=== PATIENT | male | born 1985 | race Caucasian/White ===

== ENCOUNTER 2021-01-10 02:43 | Observation (INO) | payer OTHER ==
[2021-01-10] MEDS ORDERED: NITROGLYCERIN SL TABS 0.4 MG TAB SUBLINGUAL PRN (03:04)
[2021-01-10] MEDS ORDERED: HEPARIN SOD,PORK IN 0.45% NACL 25,000 UNIT in 0.45% NACL 1 250ML.BAG IV SCH (03:15)
--- NOTE | 2021-01-10 03:21 | ED ---
Arrhythmia/Palpitations HPI - General Chief Complaint: Arrhythmia/Palpitations Stated Complaint: Palpitations Time Seen by Provider: 01/10/21 03:01 Source: EMS Mode of arrival: EMS - History of Present Illness Initial Comments: This patient presents is transferred from [facility]. The patient on there tonight after he had an episode when she passed out. Patient admitted in stable. He stood up and then passed out. He was also lightheaded and short of breath. This was approximately 8 PM. Review of systems, patient reports that he has not been feeling well since approximately 4:30 in the afternoon. He was having some epigastric discomfort. He gone home approximately 3 or 4 episodes of vomiting. He was feeling a bit better and decided to eat something in the evening and that's when he had the episode. Patient reports drinking daily approximately 8-10 beers. Reviewed the studies from the other facility reveal normal CBC and chemistries, alcohol 173. Chest x-ray and CT brain negative. MD Complaint: "heart racing" -: hour(s) Context: occurred during rest Associated Symptoms: chest pain, shortness of breath, syncope Treatments Prior to Arrival: calcium channel rob - Related Data Allergies Allergy/AdvReac Type Severity Reaction Status Date / Time Influenza Virus Vaccines AdvReac Nausea & Verified 01/10/21 03:06 Vomiting Review of Systems ROS Statement: Those systems with pertinent positive or pertinent negative responses have been documented in the HPI. ROS Other: All systems not noted in ROS Statement are negative. Constitutional: Denies: fever, chills Respiratory: Denies: cough, dyspnea Cardiovascular: Reports: as per HPI, chest pain, palpitations, syncope. Denies: orthopnea, edema Gastrointestinal: Denies: abdominal pain, nausea, vomiting Genitourinary: Denies: dysuria Musculoskeletal: Denies: back pain Skin: Denies: rash, lesions Neurological: Denies: headache, weakness, numbness Past Medical History Past Medical History: No Reported History History of Any Multi-Drug Resistant Organisms: None Reported Past Surgical History: No Surgical Hx Reported Past Psychological History: No Psychological Hx Reported Smoking Status: Never smoker Past Alcohol Use History: Daily Past Drug Use History: None Reported General Exam General appearance: alert, in no apparent distress Head exam: Present: atraumatic, normocephalic Eye exam: Present: normal appearance. Absent: scleral icterus, conjunctival injection ENT exam: Present: normal oropharynx Neck exam: Present: normal inspection Respiratory exam: Present: normal lung sounds bilaterally. Absent: respiratory distress, wheezes, rales, rhonchi, stridor Cardiovascular Exam: Present: irregular rhythm, normal heart sounds. Absent: systolic murmur, diastolic murmur, rubs, gallop GI/Abdominal exam: Present: soft. Absent: distended, tenderness, guarding, rebound, rigid, mass Extremities exam: Present: normal inspection, normal capillary refill. Absent: pedal edema, calf tenderness Back exam: Present: normal inspection. Absent: CVA tenderness (R), CVA tenderness (L) Neurological exam: Present: alert Skin exam: Present: warm, dry, intact, normal color. Absent: rash Course Vital Signs 01/10/21 03:02 Temperature 98.6 F Pulse Rate 115 H Respiratory 19 Rate Blood Pressure 117/78 O2 Sat by Pulse 98 Oximetry EKG Findings - EKG Results: EKG: interpreted by ERMD, normal axis, normal QRS EKG shows: atrial fibrillation (Rate 90 6 PM) - Blocks, [place], Hypertrophy, ST Abn: Repolarization changes or abnormalities: nonspecific abnormality, ST segment, and/or T wave Disposition Clinical Impression: Atrial fibrillation with rapid ventricular response Disposition: ADMITTED IP TO THIS HOSP Condition: Fair Is patient prescribed a controlled substance at d/c from ED?: No Referrals: None,Stated [Primary Care Provider] - 1-2 days
[2021-01-10] MEDS: DILTIAZEM 125 MG in SODIUM CHLORIDE 0.9% 100 ML IV SCH ×3 (03:37→23:04)
[2021-01-10] MEDS: SODIUM CHLORIDE 0.9% 1,000 ML IV SCH ×2 (03:37→23:03)
[2021-01-10] MEDS ORDERED: METOPROLOL TARTRATE 25 MG TAB PO SCH (10:15)
[2021-01-10] MEDS ORDERED: SODIUM CHLORIDE 0.9% 1,000 ML IV ONE (10:20)
--- NOTE | 2021-01-10 10:21 | P.HPIM ---
History of Present Illness This is a pleasant 35 years old male with no significant past medical history. Patient does not follow up with PCP. He works in a factory making wires for cars Patient was transferred from [facility]. Patient states that yesterday it was hot environment for him in his factory, he drank like half-gallon of water, he was feeling dizzy and he vomited twice with no blood. At home he passed out and he felt very weak. He remained on the floor for 2 seconds and walk up immediately, no confusion, no seizure-like activities. He had also some mild central chest pain 2 hours before he passes out. He went to [facility] with dyspnea and chest pain, and with the treatment he felt better and chest pain resolved, dyspnea almost improved. He denies headache or weakness or numbness. No more vomiting, no abdominal pain or diarrhea. No urinary complaints. He denies smoking however he drinks about 9 beers each night, no illicit drugs. He denies depression or suicidal thinking. Reviewing the records from [facility] he got aspirin, CT of the neck shows no significant stenosis. CT of the head was also negative. Chest x-ray: No acute process. EKG at [place] shown A. fib with heart rate about 176. WBC is normal at 6.3K, hemoglobin 14.4. Platelet count 157K. sodium 140, potassium 3.5. Creatinine 1.1. Glucose 96. Lipase 21. AST 38, ALT 44, total bilirubin 0.4 Alcohol level was elevated 173. Troponin less than 0.01. Magnesium 2.1, urine drug screen is negative. INR is 1.0. Free T4 is normal at 1.0 and normal TSH at 1.6. Patient presents because of palpitation. On admission he was tachycardic 115-145, Troponins 2 are negative. EKG showed atrial fibrillation with a rate of 96 breath per minute. Review of Systems CONSTITUTIONAL: No fever, no malaise, no fatigue. HEENT: No recent visual problems or hearing problems. Denied any sore throat. CARDIOVASCULAR: No orthopnea, PND, no palpitations, no syncope. PULMONARY: No shortness of breath, no cough, no hemoptysis. GASTROINTESTINAL: No diarrhea, no nausea, no vomiting, no abdominal pain. Normoactive bowel sounds. NEUROLOGICAL: No headaches, no weakness, no numbness. HEMATOLOGICAL: Denies any bleeding or petechiae. GENITOURINARY: Denies any burning micturition, frequency, or urgency. MUSCULOSKELETAL/RHEUMATOLOGICAL: Denies any joint pain, swelling, or any muscle pain. ENDOCRINE: Denies any polyuria or polydipsia. Past Medical History Past Medical History: No Reported History History of Any Multi-Drug Resistant Organisms: None Reported Past Surgical History: No Surgical Hx Reported Past Psychological History: No Psychological Hx Reported Smoking Status: Never smoker Past Alcohol Use History: Daily Past Drug Use History: None Reported Medications and Allergies Home Medications Medication Instructions Recorded Confirmed Type No Known Home Medications 01/10/21 01/10/21 History Allergies Allergy/AdvReac Type Severity Reaction Status Date / Time Influenza Virus Vaccines AdvReac Nausea & Verified 01/10/21 07:09 Vomiting Physical Exam Vitals: Vital Signs Temp Pulse Resp BP Pulse Ox 01/10/21 09:09 145 H 16 107/91 99 01/10/21 07:21 98 16 123/89 99 01/10/21 06:00 98.9 F 99 18 122/86 98 01/10/21 03:02 98.6 F 115 H 19 117/78 98 Intake and Output 01/09/21 01/10/21 01/10/21 22:59 06:59 14:59 Intake Total 10.502 28 Balance 10.502 28 Intake: Intake, IV Titration 10. 28 Amount Diltiazem 125 mg In 28 Sodium Chloride 0.9% 100 ml @ 5 MG/HR 5 mls/hr IV .Q24H ELE Rx#:[id number] Heparin Sod,Pork in 0.45% 10.502 NaCl 25,000 unit In 0.45 % NaCl 1 250ml.bag @ 10.5 UNITS/KG/HR 10.002 mls/ hr IV .Q24H ELE Rx#: [id number] Other: Weight 95.254 kg GENERAL: The patient is alert and oriented x3, not in any acute distress. Well developed, well nourished. HEENT: Pupils are round and equally reacting to light. EOMI. No scleral icterus. No conjunctival pallor. Normocephalic, atraumatic. No pharyngeal erythema. No thyromegaly. CARDIOVASCULAR: S1 and S2 present. No murmurs, rubs, or gallops. PULMONARY: Chest is clear to auscultation, no wheezing or crackles. ABDOMEN: Soft, nontender, nondistended, normoactive bowel sounds. No palpable organomegaly. MUSCULOSKELETAL: No joint swelling or deformity. EXTREMITIES: No cyanosis, clubbing, or pedal edema. NEUROLOGICAL: Gross neurological examination did not reveal any focal deficits. SKIN: No rashes. No petechiae Results Labs: Abnormal Lab Results - Last 24 Hours (Table) 01/10/21 Range/Units 03:15 APTT 111.2 H* (22.0-30.0) sec Assessment and Plan Assessment: New onset A. fib and RVR Dehydration, secondary to hot weather and alcoholism Alcohol abuse Alcohol gastritis Plan: This is a pleasant 35 years old male with new onset A. fib and RVR Continue with Cardizem drip and switched to oral beta rob/calcium channel rob Robe with heparin drip and switched to liquids. Cardiology consult Give 1 L of normal saline and continue with IV hydration Labs and medication were reviewed.. Continue same treatment. Continue with symptomatic treatment. Resume home medication. Monitor lytes and vitals. DVT and GI prophylaxis. Further recommendations depends on the clinical course of the patient DVT prophylaxis: heparin GI Prophylaxis: Ppi prognosis is guarded
--- NOTE | 2021-01-10 11:08 | ECHOF ---
Referral Reason:afib MEASUREMENTS -------- HEIGHT: 172.7 cm WEIGHT: 95.3 kg BP: 123/59 RVIDd: 2.7 cm (< 3.3) IVSd: 1.2 cm (0.6 - 1.1) LVIDd: 4.6 cm (3.9 - 5.3) LVPWd: 1.4 cm (0.6 - 1.1) IVSs: 1.5 cm LVIDs: 2.8 cm LVPWs: 1.7 cm LA Diam: 3.6 cm (2.7 - 3.8) LAESV Index (A-L): 20.95 ml/m Ao Diam: 3.3 cm (2.0 - 3.7) AV Cusp: 2.2 cm (1.5 - 2.6) LA Diam: 3.7 cm (2.7 - 3.8) MV EXCURSION: 20.477 mm (> 18.000) MV EF SLOPE: 131 mm/s (70 - 150) EPSS: 0.2 cm RAP: 5.00 mmHg RVSP: 17.13 mmHg FINDINGS -------- Atrial fibrillation. This was a technically good study. LV size, wall thickness and systolic function are normal, with an EF greater than 55%. The left aleida tricular size is normal. The right ventricle is normal in size. Normal LA size by volume 22+/-6 ml/m2. The right atrial size is normal. There is mild aortic valve sclerosis. There is no evidence of aortic regurgitation. Mild mitral regurgitation is present. Mild tricuspid regurgitation present. Right ventricular systolic pressure is normal at < 35 mmHg. Trace/mild (physiologic) pulmonic regurgitation. There is no pericardial effusion. CONCLUSIONS -------- 1. LV size, wall thickness and systolic function are normal, with an EF greater than 55%. 2. The left ventricular size is normal. 3. The right ventricle is normal in size. 4. Normal LA size by volume 22+/-6 ml/m2. 5. The right atrial size is normal. 6. There is mild aortic valve sclerosis. 7. Mild mitral regurgitation is present. 8. Mild tricuspid regurgitation present. 9. Trace/mild (physiologic) pulmonic regurgitation. 10. There is no pericardial effusion. APRON MAN: Krysta Holcomb RDCS
[2021-01-10 12:39] LABS: Magnesium 1.9 mg/dL (1.6-2.3)
--- NOTE | 2021-01-10 13:27 | P.CRDCN ---
History of Present Illness History of present illness: HISTORY OF PRESENTING ILLNESS This is a pleasant 35-year-old male past medical history significant for paroxysmal atrial fibrillation and daily alcohol intake. He states approximately 5 years ago he was diagnosed with atrial fibrillation and did see a junior sales assistant in [place] one time and has not followed up since. 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 He states he felt extremely fatigued throughout the day. He did vomit on multiple occasions throughout the day. He went home in the evening and drank approximately 7 beers. He then stood up to go and eat dinner and started feeling acutely lightheaded with significant palpitations and pressure across distress. He did fall to his knees and briefly blacked out he thinks for a couple seconds. His father took him to the hospital and Dr. Hicks. Upon arrival an EKG was obtained revealing atrial f ibrillation with rapid ventricular response. He was transferred here for further cardiac evaluation. He is seen and examined sitting up on the stretcher in the emergency department. He continues to be in atrial fibrillation with rapid ventricular rates between 140 and 170 bpm. Currently on Cardizem infusion. He continues to feel palpitations however he has no further chest discomfort. REVIEW OF SYSTEMS At the time of my exam: CONSTITUTIONAL: Denies fever or chills. CARDIOVASCULAR: Complains of palpitations. Denies chest pain, shortness of breath, PND or orthopnea. RESPIRATORY: Denies cough. GASTROINTESTINAL: Denies abdominal pain, diarrhea, constipation, nausea or vomiting. MUSCULOSKELETAL: Denies myalgias. NEUROLOGIC: Denies numbness, tingling, headache or weakness. ENDOCRINE: Denies fatigue, weight change, polydipsia or polyurina. GENITOURINARY: Denies burning, hematuria or urgency with micturation. HEMATOLOGIC: Denies history of anemia or bleeding. PHYSICAL EXAMINATION Blood pressure 136/86 heart rate 161 afebrile and maintaining oxygen saturation on room air. CONSTITUTIONAL: No apparent distress. HEENT: Head is normocephalic. Pupils are equal, round. Sclerae anicteric. Mucous membranes of the mouth are moist. No JVD. No carotid bruit. CHEST EXAMINATION: Lungs are clear to auscultation. No chest wall tenderness is noted on palpation or with deep breathing. HEART EXAMINATION: Irregular and rapid rate and rhythm. S1, S2 heard. No murmurs, gallops or rub. ABDOMEN: Soft, nontender. EXTREMITIES: 2+ peripheral pulses, no lower extremity edema and no calf tendern ess. NEUROLOGIC EXAMINATION: Patient is awake, alert and oriented x3. ASSESSMENT Paroxysmal atrial fibrillation with rapid ventricular rate Daily alcohol intake PLAN Increase Cardizem to 15 mg per hour. Add Lopressor 25 mg TID with first dose now. Echocardiogram has been obtained and will be reviewed. Initiate eliquis 5 mg BID and discontinue heparin. He will require eliquis for at least the next 1-month for possible outpatient ablation. Further recommendations to follow based upon clinical course. Thank you kindly for this consultation. Nurse Practitioner note has been reviewed, I agree with a documented findings and plan of care. Patient was seen and examined. Past Medical History Past Medical History: No Reported History History of Any Multi-Drug Resistant Organisms: None Reported Past Surgical History: No Surgical Hx Reported Past Psychological History: No Psychological Hx Reported Smoking Status: Never smoker Past Alcohol Use History: Daily Past Drug Use History: None Reported Medications and Allergies Home Medications Medication Instructions Recorded Confirmed Type No Known Home Medications 01/10/21 01/10/21 History Allergies Allergy/AdvReac Type Severity Reaction Status Date / Time Influenza Virus Vaccines AdvReac Nausea & Verified 01/10/21 07:09 Vomiting Physical Exam Vitals: Vital Signs Temp Pulse Resp BP Pulse Ox 01/10/21 09:56 141 H 18 136/93 66 L 01/10/21 09:09 145 H 16 107/91 99 01/10/21 07:21 98 16 123/89 99 01/10/21 06:00 98.9 F 99 18 122/86 98 01/10/21 03:02 98.6 F 115 H 19 117/78 98 Intake and Output 01/09/21 01/10/21 01/10/21 22:59 06:59 14:59 Intake Total 10 28 Balance 10 28 Intake: Intake, IV Titration 28 Amount Diltiazem 125 mg In 28 Sodium Chloride 0.9% 100 ml @ 5 MG/HR 5 mls/hr IV .Q24H ELE Rx#:[id number] Heparin Sod,Pork in 0.45% 10.502 NaCl 25,000 unit In 0.45 % NaCl 1 250ml.bag @ 10.5 UNITS/KG/HR 10.002 mls/ hr IV .Q24H ELE Rx#: [id number] Other: Weight 95.254 kg Results Cardiac Enzymes 01/10/21 01/10/21 Range/Units 03:15 07:27 Troponin I <0.012 <0.012 (0.000-0.034) ng/mL Coagulation 01/10/21 Range/Units 03:15 APTT 111.2 H* (22.0-30.0) sec Current Medications Generic Name Dose Route Start Last Admin Trade Name Freq PRN Reason Stop Dose Admin Famotidine 20 mg 01/10/21 21:00 Famotidine 20 Mg/2 Ml Vial IV Q12HR ELE Sodium Chloride 1,000 mls @ 20 mls/hr 01/10/21 03:15 01/10/21 03:37 Saline 0.9% IV 20 mls/hr .Q24H ELE Administration Heparin Sodium/Sodium Chloride 250 mls @ 10.002 mls/hr 01/10/21 03:15 01/10/21 05:46 25,000 unit/ Sodium Chloride IV 8 units/kg/hr .Q24H ELE 7.62 mls/hr Titration Protocol 10.5 UNITS/KG/HR Diltiazem HCl 125 mg/ Sodium 125 mls @ 5 mls/hr 01/10/21 03:20 01/10/21 09:13 Chloride IV 10 mg/hr .Q24H ELE 10 mls/hr Infusion 5 MG/HR Nitroglycerin 0.4 mg 01/10/21 03:04 Nitroglycerin Sl Tabs 0.4 Mg Tab SUBLINGUAL Q5M PRN Chest Pain Intake and Output 01/09/21 01/10/21 01/10/21 22:59 06:59 14:59 Intake Total 10.502 28 Balance 10.502 28 Intake: Intake, IV Titration 10.502 28 Amount Diltiazem 125 mg In 28 Sodium Chloride 0.9% 100 ml @ 5 MG/HR 5 mls/hr IV .Q24H ELE Rx#:[id number] Heparin Sod,Pork in 0.45% 10.502 NaCl 25,000 unit In 0.45 % NaCl 1 250ml.bag @ 10.5 UNITS/KG/HR 10.002 mls/ hr IV .Q24H ELE Rx#: [id number] Other: Weight 95.254 kg
[2021-01-10] MEDS: APIXABAN 5 MG TAB PO SCH ×2 (13:57→20:26)
[2021-01-10] MEDS: METOPROLOL TARTRATE 25 MG TAB PO SCH ×2 (17:21→20:26)
[2021-01-10] MEDS: FAMOTIDINE 20 MG/2 ML VIAL IV SCH (20:26)
[2021-01-10 22:07] LABS: Chol/HDL Ratio 4.84; LDL Cholesterol,Calculated 117.4 mg/dL (0.0-131.0); VLDL Calculation 55.6 mg/dL (5.00-40.00)
[2021-01-11 04:04] VITALS: RESP 16
[2021-01-11] MEDS: SODIUM CHLORIDE 0.9% 1,000 ML IV SCH (06:29)
[2021-01-11 08:29] LABS: Basophils % (A) 1 %; Eosinophils # (A) 0.2 k/uL (0-0.7); Eosinophils % (A) 4 %; HCT 49.2 % (39.0-53.0); HGB 16.9 gm/dL (13.0-17.5); Lymphocytes # (A) 1.5 k/uL (1.0-4.8); Lymphocytes % (A) 26 %; MCHC 34.2 g/dL (31.0-37.0); MCV 96.5 fL (80.0-100.0); Mean Platelet Volume 8.2; Monocytes # (A) 0.3 k/uL (0-1.0); Monocytes % (A) 5 %; Neutrophils # (A) 3.7 k/uL (1.3-7.7); Neutrophils % (A) 63 %; Platelet Count 153 k/uL (150-450); WBC 5.9 k/uL (3.8-10.6)
[2021-01-11 08:37] LABS: African American GFR (CKD) >90 (>60 ml/min/1.73 sqM); Anion Gap 9 mmol/L; Blood Urea Nitrogen 9 mg/dL (9-20); Calcium 9.7 mg/dL (8.4-10.2); Carbon Dioxide 22 mmol/L (22-30); Chloride 106 mmol/L (98-107); Glucose 162 mg/dL (74-99); Magnesium 1.9 mg/dL (1.6-2.3); Non-African American GFR(CKD) >90 (>60 ml/min/1.73 sqM); Potassium 4.3 mmol/L (3.5-5.1); Sodium 137 mmol/L (137-145)
[2021-01-11] MEDS: APIXABAN 5 MG TAB PO SCH (08:41)
[2021-01-11] MEDS: FAMOTIDINE 20 MG/2 ML VIAL IV SCH (08:41)
[2021-01-11] MEDS: DILTIAZEM 125 MG in SODIUM CHLORIDE 0.9% 100 ML IV SCH (08:41)
[2021-01-11] MEDS: METOPROLOL TARTRATE 25 MG TAB PO SCH (08:41)
[2021-01-11] MEDS ORDERED: ASPIRIN 325 MG TAB PO SCH (09:00)
[2021-01-11] MEDS ORDERED: METOPROLOL SUCCINATE (ER) 25 MG TAB.ER.24H PO SCH (09:15)
--- NOTE | 2021-01-11 11:04 | P.PN ---
Subjective Progress Note Date: 01/11/21 HISTORY OF PRESENT ILLNESS: This is a pleasant 35-year-old male past medical history significant for paroxysmal atrial fibrillation and daily alcohol intake. He states ap proximately 5 years ago he was diagnosed with atrial fibrillation and did see a head correction officer in [place] one time and has not followed up since. 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 He states he felt extremely fatigued throughout the day. He did vomit on multiple occasions throughout the day. He went home in the evening and drank approximately 7 beers. He then stood up to go and eat dinner and started feeling acutely lightheaded with significant palpitations and pressure across distress. He did fall to his knees and briefly blacked out he thinks for a couple seconds. His father took him to the hospital and Dr. Hicks. Upon arrival an EKG was obtained revealing atrial fibrillation with rapid ventricular response. He was transferred here for further cardiac evaluation. He is seen and examined sitting up on the stretcher in the emergency department. He continues to be in atrial fibrillation with rapid ventricular rates between 140 and 170 bpm. Currently on Cardizem infusion. He continues to feel palpitations however he has no further chest discomfort. 01/11/2021 Patient examined this morning at the bedside. Patient has converted to sinus b radycardia with a heart rate in the 50s. He remains on IV Cardizem. He denies chest pain or pressure. Denies shortness of breath. Blood pressure stable. PHYSICAL EXAM: VITAL SIGNS: Reviewed. GENERAL: Well-developed in no acute distress. NECK: Supple. No JVD or thyromegaly LUNGS: Respirations even and unlabored. Lungs essentially clear to auscultation bilaterally. HEART: Regular rate and rhythm. S1 and S2 heard. EXTREMITIES: Normal range of motion. No clubbing or cyanosis. Peripheral pulses intact. No lower extremity edema ASSESSMENT: Paroxysmal atrial fibrillation with RVR Daily alcohol use PLAN: Discontinue metoprolol tartrate. Begin metoprolol succinate 25 mg daily Discontinue IV Cardizem infusion Patient to be discharged home on Eliquis 5 mg twice a day for [address] Singh Patient to follow up in the office next week and will receive an event monitor at that time Stable for DC home today from a cardiac standpoint Nurse practitioner note has been reviewed by physician. Signing provider agrees with the documented findings, assessment, and plan of care. Objective - Vital Signs Vital signs: Vital Signs Temp 98.3 F 01/11/21 04:00 Pulse 84 01/11/21 04:00 Resp 16 01/11/21 04:00 BP 135/91 01/11/21 04:00 Pulse Ox 97 01/11/21 04:00 Intake & Output 01/10/21 01/11/21 01/11/21 18:59 06:59 18:59 Intake Total 125 1575.25 365 Balance 125 1575.25 365 Weight 91.5 kg Intake: Intake, IV Titration 125 1335.25 125 Amount Diltiazem 125 mg In 125 85.25 125 Sodium Chloride 0.9% 100 ml @ 15 MG/HR 15 mls/hr IV .Q8H20M ELE Rx#: [id number] Sodium Chloride 0.9% 1, 1250 000 ml @ 125 mls/hr IV . Q8H ELE Rx#:[id number] Oral 240 240 Other: # Voids 2 - Labs CBC & Chem 7: 01/11/21 07:48 01/11/21 07:48 Labs: Abnormal Lab Results - Last 24 Hours (Table) 01/10/21 01/11/21 Range/Units 11:54 07:48 Glucose 162 H (74-99) mg/dL Triglycerides 278.0 H (0.0-149.0) mg/dL Cholesterol 218 H (0-200) mg/dL VLDL Cholesterol, Calc 55.60 H (5.00-40.00) mg/dL
[2021-01-11 11:05] VITALS: TEMP 97
[2021-01-11 12:43] VITALS: BP 139/89; PULSE 52
--- NOTE | 2021-01-11 15:41 | P.PN ---
Progress Note - Text Summary Patient presented with palpitations and syncope Binge drinking 8-10 beers Alcohol level Twelve-lead EKG shows atrial fibrillation 2-D echo shows result LV systolic function EF 55% Mild aortic sclerosis without stenosis, mild MR and mild TR no pericardial effusion 9 normal left atrial size White count normal 5.9, hemoglobin 16.9, late rate count 153,000 Sodium 137, potassium 4.3, BUN 9 and creatinine 0.8 Normal troponins Triglycerides 278, total cholesterol 218, HDL 45 and LDL 117 TSH normal at 1.1 Plan Patient converted back to sinus rhythm spontaneously on IV Cardizem, within 24- 36 hours He will be treated with anticoagulants for the next week and then discontinued I discussed his future options including implantation of a loop monitor versus a 30 day event monitor I would like to prescribe her 30 day event monitor in the future to see if he has silent episodes of atrial fibrillation before deciding on future therapy Complete cessation from alcohol use Patient states that he is determined to stop alcohol consumption I will see him in the office next week on Friday at 11 AM
[2021-01-11] MEDS ORDERED: FAMOTIDINE 20 MG TAB PO SCH (21:00)
--- NOTE | 2021-01-15 06:44 | P.DS ---
Providers Date of admission: 01/10/21 10:45 Attending physician: Ruben Ortiz Consults: 01/10/21 03:04 Consult Physician Routine Consulting Provider: Jhonathan Russell Consult Reason/Comments: Atrial fibrillation with rapid ventricular rate Do you want consulting provider notified?: Yes Primary care physician: Stated None Hospital Course: Diagnoses: New onset A. fib and RVR Dehydration, secondary to hot weather and alcoholism Alcohol abuse Alcohol gastritis Hospital course: This is a pleasant 35 years old male with no significant past medical history. Patient does not follow up with PCP. He works in a factory making wires for cars Patient was transferred from [facility]. Patient states that yesterday it was hot environment for him in his factory, he drank like half-gallon of water, he was feeling dizzy and he vomited twice with no blood. At home he passed out and he felt very weak. He remained on the floor for 2 seconds and walk up immediately, no confusion, no seizure-like activities. He was found to have new onset A. fib with RVR, he has been evaluated by water plant pump operator. He is converted back to sinus rhythm spontaneously on IV Cardizem within 24-36 hours per water plant pump operator. He was receiving anticoagulation. Chest clear today for discharge on 1 week of Eliquis And metoprolol Patient back to baseline and is currently asymptomatic. Chest pain or dyspnea. Change in urine or bowel habits. No fever. Patient was cleared for discharge by water plant pump operator Problems and management plan were discussed with the patient and he verbalized understanding and acceptance Patient was found stable and can be discharged home however he needs follow-up as an outpatient. Patient was instructed to follow up with PCP within one week and patient agrees. And has no PCP. He was counseled to call his insurance provider to find PCP in one week and he agrees Instructed to follow up with Dr. Sanchez on 01/16 and he agrees Physical exam Gen: patient is a AAOx3, no distress CVS: S1-S2, RRR, no murmur Lungs: B/L CTA, no wheezing Abdomen: soft, no distention, no tenderness, positive bowel sounds Extremity: no leg edema or induration Time spent more than 35 minutes Patient Condition at Discharge: Fair Plan - Discharge Summary Discharge Rx Participant: Yes New Discharge Prescriptions: New Apixaban [Eliquis] 5 mg PO BID 7 Days #14 tab Metoprolol Succinate (ER) [Toprol XL] 25 mg PO DAILY #90 tab.er.24h Discharge Medication List Apixaban [Eliquis] 5 mg PO BID 7 Days #14 tab 01/11/21 [Rx] Metoprolol Succinate (ER) [Toprol XL] 25 mg PO DAILY #90 tab.er.24h 01/11/21 [Rx] Follow up Appointment(s)/Referral(s): Trent Singh MD [STAFF PHYSICIAN] - 01/16/21 11:00 am (appointment is at main office) None,Stated [Primary Care Provider] - 1-2 days Patient Instructions/Handouts: A-fib (Atrial Fibrillation) (DC) Activity/Diet/Wound Care/Special Instructions: TAKE ELIQUIS FOR ONE WEEK AND THEN DISCONTINUE heart healthy diet activity is restricted till you see your doctor Discharge/Stand Alone Forms: Work/School Release / Restrict Discharge Disposition: HOME SELF-CARE
== END 2021-01-11 15:23 | disposition home or self-care (01) ==
LOC: EC 02:43 → 3SCARD 03:12 → OBSVTOIN 10:45 → INTOOBSV 10:45 → 3SCARD 15:17 → UNDODISIN 01-11 15:23
PROVIDERS: ADMIT Hospitalist; ATTEND Hospitalist
DX: I48.0 Paroxysmal atrial fibrillation (principal); E86.0 Dehydration; F10.20 Alcohol dependence, uncomplicated; K29.20 Alcoholic gastritis without bleeding; R06.00 Dyspnea, unspecified; R00.1 Bradycardia, unspecified; R55 Syncope and collapse; I70.0 Atherosclerosis of aorta; Y90.6 Blood alcohol level of 120-199 mg/100 ml; Z88.7 Allergy status to serum and vaccine; Z71.41 Alcohol abuse counseling and surveillance of alcoholic; Z57.6 Occupational exposure to extreme temperature
CPT/HCPCS: 96376; 96366 ×3; 96375; 96368; 96365; 99285; 36415; 93005; 93306; 80061; 80048; 84443; 83735 ×2; 84484; 85025; 85730; G0378 ×2; J1644